=== PATIENT | female | born 1960 | race Caucasian/White ===

== ENCOUNTER 2017-10-17 17:54 | Emergency (ER) | payer SELFPAY ==
[~2017-10-17] VITALS: Ht 175.3 cm; Wt 45.5 kg
[2017-10-17 18:42] LABS: BASO # 0.1 (0.02-0.10); EOS # 0.4 (0.04-0.40); EOS % 3.9 % (1.0-5.0); HEMOGLOBIN 13.1 g/dL (12.5-16.0); LYMPH# 4.9 (1.50-4.00); MEAN CELL VOLUME 94 fl (78-100); MEAN CORPUSCULAR HEMOGLOBIN 31 pg (27-31); MEAN CORPUSCULAR HGB CONC 33 g/dL (33-37); MEAN PLATELET VOLUME 9.3 fl (7.4-10.4); MONO # 0.5 (0.20-0.80); NEU # 3.1 (1.40-6.50); PLATELET COUNT 418 K/mm3 (130-400); RED BLOOD COUNT 4.24 M/mm3 (4.10-5.30); RED CELL DISTRIBUTION WIDTH 13.8 % (11.5-14.5); WHITE BLOOD COUNT 8.9 K/mm3 (4.8-10.8)
[2017-10-17 18:51] LABS: CKMB ISOENZYME 1.6 ng/mL (0.6-3.5)
[2017-10-17 18:56] LABS: TROPONIN-I < 0.03 ng/mL (0.00-0.06)
[2017-10-17 19:07] LABS: ALBUMIN 4.3 g/dL (3.5-5.0); CALCIUM 8.9 mg/dL (8.4-10.2); TOTAL BILIRUBIN 0.3 mg/dL (0.2-1.3); TOTAL PROTEIN 8.1 g/dL (6.3-8.2)
[2017-10-17 19:43] VITALS: BP 140/87
== END 2017-10-17 19:43 | disposition home or self-care (01) ==
LOC: ED 17:54
PROVIDERS: Physician Assistant
DX: R07.9 Chest pain, unspecified (principal); K21.9 Gastro-esophageal reflux disease without esophagitis; F17.210 Nicotine dependence, cigarettes, uncomplicated

== ENCOUNTER 2017-11-29 20:10 | Emergency (ER) | payer SELFPAY ==
[~2017-11-29] VITALS: Ht 165.1 cm; Wt 46.8 kg
[2017-11-29 23:05] VITALS: BP 116/84
== END 2017-11-29 23:05 | disposition home or self-care (01) ==
LOC: ED 20:10
DX: F41.9 Anxiety disorder, unspecified (principal); F32.9 Major depressive disorder, single episode, unspecified; F17.200 Nicotine dependence, unspecified, uncomplicated

== ENCOUNTER 2017-12-20 20:40 | Observation (INO) | payer OTHER ==
[~2017-12-20] VITALS: Ht 167.6 cm; Wt 46.2 kg
[2017-12-20 22:45] LABS: URINE APPEARANCE CLEAR; URINE BILIRUBIN NEGATIVE (NEGATIVE); URINE BLOOD NEGATIVE (NEGATIVE); URINE COLOR YELLOW; URINE GLUCOSE NEGATIVE (NEGATIVE); URINE KETONE NEGATIVE (NEGATIVE); URINE LEUKOCYTE ESTERASE NEGATIVE (NEGATIVE); URINE MUCUS PRESENT (NOT PRESENT); URINE NITRATE NEGATIVE (NEGATIVE); URINE PROTEIN(semi-quant) NEGATIVE (NEGATIVE); URINE UROBILINOGEN NORMAL (NORMAL); URINE WBC 0-1 /hpf (0-3)
[2017-12-21 04:09] VITALS: BP 121/71
--- NOTE | 2017-12-21 04:25 | NUR ---
PATIENT ADMITTED TO OBSERVATION ROOM 308 AT THIS TIME. PATIENT IS ASSIGNED A 1:1 SITTER AT THIS TIME, DUE TO HER PREVIOUS ERRATIC BEHAVIOR, THE FACT THAT SHE IS UNDER POLICE PROTECTIVE CUSTODY AND BECAUSE SHE HAS BECOME AGITATED UPON NOT BEING ABLE TO WALK OUT OF ED. PATIENT DOES NOT APPEAR TO BE IN ANY OBVIOUS, ACUTE DISTRESS. PATIENT FOLLOWS DIRECTIONS TO AMBULATE DOWN TO OBSERVATION ROOM, BUT DOES NOT ANSWER ADMIT ASSESSMENT QUESTIONS. PATIENT DOES NOT MAKE ANY COMPLAINTS OR REQUESTS AT THIS TIME. PATIENT IS DROWSY, BUT ORIENTED. PATIENT CONTINUES TO PERIODICALLY DISPLAY BEHAVIORS SUCH RANDOM OUTBURSTS OF CRYING, CARRYING ON A CONVERSATION WITH SOMEONE IN THE ROOM (THAT ONLY SHE CAN SEE/HEAR) AND ANSWERING QUESTIONS WITH INAPPROPRIATE ANSWERS. ROOM ORIENTATION AND HOSPITAL RULES AND EXPECTATIONS PROVIDED BY DEVELOPER EVANGELIST. CLOSE MONITORING IMPLEMENTED.
[2017-12-21 06:30] VITALS: BP 121/71
--- NOTE | 2017-12-21 07:09 | NUR ---
REPORT GIVEN TO FEI Dobbins RN.
--- NOTE | 2017-12-21 09:00 | NUR ---
PT AMBULATORY TO RESTROOM, STEADY GAIT NOTED, PT VERY WITHDRAWN WITH HER HAIR OVER HER FACE, REQUESTING TO BE LEFT ALONE, UPON EXITING ROOM PT WAS IN BED WITH BLANKETS OVER HER HEAD TALKING TO HERSELF
--- NOTE | 2017-12-21 10:30 | NUR ---
ANNIE FROM [facility] CALLS AT THIS TIME, REQUESTING ADDITIONAL INFORMATION VIA TELEPHONE, STATES THEY ARE "HOPING" TO HAVE A BED AVAILABLE FOR PATIENT THIS EVENING
[2017-12-21 11:06] VITALS: BP 101/63
--- NOTE | 2017-12-21 14:00 | NUR ---
PT UP IN ROOM PACING, [address] OFFERED TO TAKE PATIENT ON A WALK, PT WALKED ABOUT 10 STEPS OUT OF HER ROOM AND TURNED AROUND AND WENT BACK INTO THE ROOM AND SHUT THE DOOR HARD BEHIND HER, DOOR OPENED AND PT IS BACK IN BED WITH COVERS OVER HER HEAD REQUESTING TO BE LEFT ALONE
--- NOTE | 2017-12-21 14:30 | NUR ---
CALL FROM [facility] REQUESTING A DOC TO DOC PHONE CALL, PROVIDED ALL NEEDED INFORMATION TO ALLOW THIS TO HAPPEN AT THIS TIME, NO DISCHARGE ORDERS AT THIS TIME OR BED PLACEMENT GIVEN
[2017-12-21 14:56] VITALS: BP 94/54
--- NOTE | 2017-12-21 15:01 | NUR ---
PT UP AND DOWN TO BATHROOM THROUGHOUT SHIFT, WILLING TO LET CONFERENCE CENTER MANAGER'S TAKE VITAL SIGNS TODAY BUT VERY PARANOID ABOUT ANY FURTHER ASSESSMENTS, PT HAS BEEN LYING IN BED WITH COVERS OVER HER HEAD THROUGHOUT SHIFT, MULTIPLE INSTANCES OF HER TALKING TO HERSELF IN HER ROOM NOTED THROUGHOUT DAY
--- NOTE | 2017-12-21 16:21 | NUR ---
CALL FROM REPORTING [facility] HAS A BED AVAILABLE, CALLED FOR ROOM NUMBER, ADMISSIONS STATES THEY "DO NOT ASIGN A ROOM UNTIL PATIENT ARRIVES," CALLED [facility] TO NOTIFY THEM OF NEED OF THEIR SERVICES, [facility] STATES THEY DO NOT HAVE ANY DRIVERS AVAILABLE, [facility] [facility], [facility] [facility] STATES THEY ARE GOING TO SEND AN OFFICER UP HERE TO DISCUSS A PLAN
--- NOTE | 2017-12-21 16:39 | NUR ---
[facility] CALL TO NOTIFY THAT THEY WILL BE BY AT 1730 TO PICK PT UP AND TRANSPORT HER TO [facility], JOANNE (DIL) NOTIFIED, JOANNE STATES THAT SHE IS UNABLE TO BRING UP ANY PATIENT BELONGINGS OF CLOTHES BUT SHE WILL CALL THE [facility] AND ASK WHAT PT IS ALLOWED TO BRING/HAVE AND BRING BELONGINGS TOMORROW WHEN SHE IS NOT AT WORK TO [place] IF SHE IS ABLE TO, WILL NOTIFY PT AT THIS TIME
[2017-12-21 16:49] VITALS: BP 94/54
--- NOTE | 2017-12-21 16:54 | NUR ---
MICHAEL TO NURSE REPORT PROVIDED TO SMITHA DAVIS AT [facility]
[2017-12-21 17:40] VITALS: BP 118/72
--- NOTE | 2017-12-21 17:56 | NUR ---
PT'S GRANDKIDS ARRIVE WITH A BAG OF CLOTHES, POLICE ARRIVE AND HANDCUFF PATIENT AND ASSIST HER TO POLICE CAR FOR TRANSPORT, ALL APPROPRIATE PAPERWORK SENT WITH PT AND FAXED PRIOR TO DC
== END 2017-12-21 17:57 ==
LOC: ED 20:40 → MED/SURG 12-21 03:54
PROVIDERS: ADMIT Family Medicine
DX: F32.3 Major depressive disorder, single episode, severe with psychotic features (principal); F15.11 Other stimulant abuse, in remission; K02.9 Dental caries, unspecified; F17.210 Nicotine dependence, cigarettes, uncomplicated
CPT/HCPCS: G0378